=== PATIENT | male | born 1975 | race Caucasian/White ===

== ENCOUNTER 2023-08-08 13:08 | Emergency (ER) | payer BC, MEDICAID, SELFPAY ==
[2023-08-08 13:10] VITALS: BP 147/83; PULSE 71; RESP 18; TEMP 36.8; O2SAT 99; BMI 21.4
--- NOTE | 2023-08-08 14:49 | W.ED.WOUNDLC ---
HPI - Wound/Laceration General: Chief Complaint: Wound/Laceration Stated Complaint: swollen middle finger right hand Time Seen by Provider: 08/08/23 14:42 Source: patient Mode of arrival: ambulatory History of Present Illness: 47-year-old male presents emergency room with blood blistering to his right third finger it is circumferential. It is at the distal interphalangeal joint. Patient had a cold exposure injury he still has sensation to the tip of the finger he has difficulty moving because of the skin tension from the blister. No direct trauma to the affected digit. He states that his immunizations are up-to-date. Onset (ago): day(s) Extremity Location: Right: hand (Third finger) Place: home Patient tetanus UTD: Yes Associated symptoms: Denies chills, fever(s), foreign body sensation, inability to move, nausea, numbness, pain, syncope or vomiting Review of Systems Const: Denies: fever(s) or chills Card: Denies: syncope Resp: Denies: dyspnea GI: Denies: nausea or vomiting : Denies: dysuria, urinary frequency or urinary urgency Musc: Denies: neck pain or back pain Skin/Breast: Reports: new lesions (Blistering right third finger); Denies: rash Physical Exam Const: GENERAL APPEARANCE: cooperative and comfortable ORIENTATION/CONSCIOUSNESS: Yes awake, Yes oriented to person, Yes oriented to place and Yes oriented to time HENMT: COMMON NORMALS: normocephalic, atraumatic and hearing grossly normal bilaterally HEAD & SCALP: normocephalic and atraumatic Resp: COMMON NORMALS: normal respiratory effort, No retractions, No use of accessory muscles and clear to auscultation bilaterally AUSCULTATION: clear to auscultation bilaterally Cardio: COMMON NORMALS: regular rate, regular rhythm and No murmurs present (Cardio) RATE: regular rate RHYTHM: regular rhythm Extremity: OTHER: Circumferential blistering right third finger distally. Neuro: SENSORIUM/ORIENTATION: Yes oriented to person, Yes oriented to place and Yes oriented to time Procedures Abscess I/D Site: hand Side (if applicable): right Amount of fluid expressed (mL): 10 Irrigation: Yes Packing used?: none Course Vital Signs: Vital signs: Vital Signs Temperature 98.2 F 08/08/23 13:10 Pulse Rate 71 08/08/23 13:10 Respiratory Rate 18 08/08/23 13:10 Blood Pressure 147/83 08/08/23 13:10 Pulse Oximetry 99 08/08/23 13:10 Oxygen Delivery Me thod Room Air 08/08/23 13:10 MDM - Wound/Laceration Medical Decision Making Using the bevel of an 18-gauge needle the skin was cut approximately 1 cm on both the lateral and medial sides of the right third finger DIP joint. Large amount of clear serous fluid drained. No purulent drainage patient able to flex and extend his normal sensation in the fingertip after this is completed. Discharge home apply topical antibiotic aloe vera ointment keep digit warm clean and dry. Follow-up with wound care Medical Records I reviewed the patient's medical records. No radiology studies performed this visit Discharge Plan Discharge Patient Disposition: Home Clinical Impression: Frostbite of finger of right hand Condition: Stable Prescriptions: New mupirocin 2 % ointment 1 applic topical BID Qty: 22 0RF ibuprofen 800 mg tablet 800 mg PO TID Qty: 30 0RF Discharge Orders: Discharge ED (Routine); Ordered 08/08/23 Ordered By: Darren Vanegas Discharge Diet: Usual diet Discharge Activity: Increase activity as tolerated Patient Instructions: Opioid Safety, Pain Management Activity Restrictions/Additional Instructions: Thank you for choosing [facility] for your healthcare needs today. Please realize this is an emergency room and that we are providing you with a medical screening exam and this may not be complete and all inclusive of all the testing and or work up that you may need to determine your ailment or severity of your illness. It is very important that you follow up as instructed or that you return to the Emergency Department should you have concerns or if your condition changes or worsens in any way. 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
--- NOTE | 2023-08-08 15:31 | PC.NURSE ---
right middle digit drained by Dr Vanegas using an 18ga. pt tolerated well bandage and instructed pt to follow up with pcp.
--- NOTE | 2023-08-09 04:26 | DCPLANNER ---
Message sent to Wound care for a follow up appointment -Frostbite injury
== END 2023-08-08 15:32 | disposition home or self-care (01) ==
PROVIDERS: Emergency Provider Family Medicine
DX: T33.531A Superficial frostbite of right finger(s), initial encounter (principal); X31.XXXA Exposure to excessive natural cold, initial encounter
CPT/HCPCS: 10140; 99283